=== PATIENT | male | born 1965 | race Caucasian/White ===

== ENCOUNTER → 2020-04-09 13:32 | Outpatient (CLI) | payer OTHER, SELFPAY ==
--- NOTE | ~2020-04-09 | XR_ITS ---
EXAMINATION:XR_[id number] DATE: 04/09/2020 14:01 INDICATION: Radiating pain of the cervical spine, history of prior cervical spine fracture TECHNIQUE: AP, lateral, lateral swimmers and odontoid views of the cervical spine are provided. COMPARISON: None FINDINGS: Alignment is normal. The odontoid is intact. No fracture is identified. The vertebral body heights are normal. There is mild loss of intervertebral disc space height at C5-6 and C6-7. Small de generative osteophytes project from the anterior endplates of multiple vertebral bodies. 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 Prevertebral soft tissues are normal. IMPRESSION: 1. Mild cervical spondylosis without acute findings. Reviewed, dictated and finalized at location A. [employer]
== END ==
PROVIDERS: PCP Physician Assistant
DX: M47.22 Other spondylosis with radiculopathy, cervical region (principal)
CPT/HCPCS: 72040

== ENCOUNTER → 2021-01-03 13:36 | Outpatient (CLI) | payer OTHER, SELFPAY ==
--- NOTE | ~2021-01-03 | XR_ITS ---
[[id number] ] INDICATION: Left rib pain TECHNIQUE: Frontal projection of the upper left ribs, frontal projection of the lower left ribs, obli que projection of all the left ribs, frontal inspiratory chest x-ray for interpretation. FINDINGS: There are no displaced rib fractures identified. There are no soft tissue abnormality see n. The lungs are clear. There are calcified granulomas in the lung and spleen. IMPRESSION: 1:No acute displaced rib fractures. Reviewed, dictated and finalized at location A.
== END ==
PROVIDERS: PCP Physician Assistant; Visit Provider Physician Assistant
DX: R07.81 Pleurodynia (principal)
CPT/HCPCS: 71101

== ENCOUNTER 2022-04-03 01:24 | Day surgery (SDC) | payer OTHER, SELFPAY ==
[2022-03-28 12:03] VITALS: BMI 27.3
--- NOTE | 2022-04-02 13:00 | PM.HPGS ---
History of Present Illness History of Present Illness Consent: Risks, benefits, and alternatives have been discussed and questions answered. Patient agrees to proceed with procedure. Chief complaint: hx colon polyps Narrative: Long Cartwright is a 57 year old male Referred for colon cancer screening. About 13 years ago when I performed a colonoscopy 1 adenomatous polyp was removed. He is here now for colon cancer screening. His last colonoscopy was 6 or 7 years ago. Review of Systems Review of Systems: All systems reviewed & are unremarkable except as noted in HPI and below PMFSH Social History Social History Years smoked: 45 Smoking status: Current every day smoker Tobacco type: cigarettes and e-cigarettes/vaping Substance use type: does not use Living arrangements: with family Spiritual care concerns: No Meds Home Medications and Allergies Home Medications Medication Instructions Recorded Confirmed Type loperamide 2 mg capsule 8 mg PO DAILY 03/28/22 03/28/22 History tadalafil 5 mg tablet 5 mg PO DAILY PRN Sexual Activity 03/28/22 03/28/22 History Allergies Allergy/AdvReac Type Severity Reaction Status Date / Time No Known Allergies Allergy Mild Unverified 04/03/22 08:00 Exam Resp: Auscultation: clear to auscultation bilaterally Cardio: Rate: regular rate Rhythm: regular rhythm GI: GI Palp: Yes Soft to palpation and No Tenderness to palpation present (GI) Assessment and Plan Assessment and plan (1) Colon cancer screening: Code(s): Z12.11 - Encounter for screening for malignant neoplasm of colon Status: Acute Assessment and Plan: Colonoscopy with possible biopsy or polypectomy or cautery or injection of substances.
[2022-04-03 08:01] VITALS: BP 114/78; PULSE 106; RESP 18; TEMP 36.3; O2SAT 98
[2022-04-03] MEDS: LACTATED RINGERS 1,000 ML 150 ML IV CONT (08:09)
--- NOTE | 2022-04-03 08:57 | WPDANESEPPF ---
Anes - Initial Pre Proc Eval Procedure: Operation Date: 04/03/22 09:15 Proposed Procedures p Screening Colonoscopy - Bernardo Jane MD Date/Time: 04/03/22 08:57 Surgeon: Bernardo Jane MD Pre Op Diagnosis: hx colon polyps Patient Data Age: 57 Gender: M Height: 1.75 m Weight: 83.7 kg Last Vital Signs Temp 36.3 C L 04/03/22 08:01 Pulse 106 H 04/03/22 08:01 Resp 18 04/03/22 08:01 BP 114/78 04/03/22 08:01 Pulse Ox 98 04/03/22 08:01 O2 Del Method Room Air 04/03/22 08:01 Allergies Allergy/AdvReac Type Severity Reaction Status Date / Time No Known Allergies Allergy Mild Unverified 04/03/22 08:00 Home Medications Medication Instructions Recorded Confirmed Type loperamide 2 mg capsule 8 mg PO DAILY 03/28/22 03/28/22 History tadalafil 5 mg tablet 5 mg PO DAILY PRN Sexual Activity 03/28/22 03/28/22 History Patient hx anesthesia problems: none Family hx anesthesia problems: none Results Review: All pre-operative results and documents have been reviewed as part of the pre-operative evaluation. [facility] Social History Social History Years smoked: 45 Smoking status: Current every day smoker Tobacco type: cigarettes and e-cigarettes/vaping Substance use type: does not use Living arrangements: with family Spiritual care concerns: No Anes - Eval Final PreProcedure Day of Procedure 04/03/22 08:57 Patient weight: overweight Heart: regular rate and rhythm Lungs: decreased breath sounds Airway: Mallampati scale class II Neurological: alert and oriented Last oral intake: >/= 8 hours ASA classification: III Emergent: no Anesthetic plan: proceed Anesthesia type and monitoring: general GIVS and standard monitoring Results Review: All pre-operative results and documents have been reviewed as part of the pre-operative evaluation. Informed Consent: The patient's anesthetic plan and its attendant risks and benefits were discussed with the patient/family/POA. Questions were solicited and answers provided to the satisfaction of the patient/family/POA.
[2022-04-03 09:49] VITALS: BP 116/75; PULSE 91; RESP 23; O2SAT 96
[2022-04-03 09:59] VITALS: BP 106/71; PULSE 90; RESP 17; O2SAT 96
[2022-04-03 10:09] VITALS: BP 92/62; PULSE 86; RESP 17; O2SAT 96
== END 2022-04-03 10:24 | disposition home or self-care (01) ==
PROVIDERS: PCP Physician Assistant; Visit Provider Internal Medicine Gastroenterology
PROC: 0DJD8ZZ Inspection of Lower Intestinal Tract, Via Natural or Artificial Opening Endoscopic (ICD-10-PCS; CPT 45378; principal; 2022-04-03 09:15)
DX: Z12.11 Encounter for screening for malignant neoplasm of colon (principal); D12.4 Benign neoplasm of descending colon; K57.30 Diverticulosis of large intestine without perforation or abscess without bleeding; K64.8 Other hemorrhoids; F17.210 Nicotine dependence, cigarettes, uncomplicated; F17.290 Nicotine dependence, other tobacco product, uncomplicated
CPT/HCPCS: 45380; 88305; J2001; J2704; J7120